=== PATIENT | female | born 1990 | race Hispanic/Latino ===

== ENCOUNTER 2021-05-21 11:57 | Emergency (ER) | payer SELFPAY ==
[~2021-05-21] VITALS: Ht 157.5 cm; Wt 98.4 kg
[2021-05-21] MEDS ORDERED: IBUPROFEN 600 MG TAB PO STA (12:13)
[2021-05-21 13:55] VITALS: BP 106/78
== END 2021-05-21 13:57 | disposition home or self-care (01) ==
LOC: ER 12:07
DX: M79.672 Pain in left foot (principal); M77.52 Other enthesopathy of left foot and ankle
CPT/HCPCS: 99283

== ENCOUNTER 2021-07-13 18:08 | Inpatient (IN) | payer SELFPAY ==
[~2021-07-13] VITALS: Ht 157.5 cm; Wt 98.4 kg
[2021-07-13] MEDS ORDERED: KETOROLAC TROMETHAMINE 30 MG/ML VIAL IM PRN (18:45)
[2021-07-13] MEDS ORDERED: SODIUM CHLORIDE 0.9% 1000ML 1,000 ML IV SCH (18:45)
[2021-07-13 19:02] LABS: BASOPHILS # (AUTO) 0.1 (0.0-0.1); BASOPHILS % 0.3 % (0.0-1.0); EOSINOPHILS # (AUTO) 0.2 (0.0-0.4); EOSINOPHILS % 0.7 % (0.0-6.0); HEMATOCRIT 40.5 % (34.2-44.1); HEMOGLOBIN 12.7 g/dL (12.0-16.0); LYMPHOCYTES % 13.6 % (18.0-39.1); MEAN CORPUSCULAR HEMOGLOBIN 26.8 pg (28-32); MEAN CORPUSCULAR HGB CONC 31.4 g/dL (31-35); MEAN CORPUSCULAR VOLUME 85.6 fL (81-99); MONOCYTES # (AUTO) 0.7 (0.2-0.8); MONOCYTES % 3.3 % (4.4-11.3); NEUTROPHILS # (AUTO) 17.8 (2.1-6.9); NEUTROPHILS % 81.6 % (38.7-80.0); PLATELET COUNT 383 x10e3/uL (140-360); RED BLOOD COUNT 4.73 x10e6/uL (3.6-5.1); RED CELL DISTRIBUTION WIDTH 13.1 % (11.7-14.4)
[2021-07-13] MEDS ORDERED: PIPERACILLIN/TAZOBACTAM 3.375 GM in SODIUM CHLORIDE 0.9% 50ML 50 ML IV ONE (19:15)
[2021-07-13] MEDS ORDERED: PROMETHAZINE HCL (IM) 25 MG/ML VIAL IM PRN ×2 (19:30→22:15)
[2021-07-13] MEDS ORDERED: ONDANSETRON HCL INJ 2MG/ML 2ML 2 MG/ML VIAL IV STA (19:33)
[2021-07-13 20:11] LABS: AMPHETAMINES SCREEN,URINE NEGATIVE (NEGATIVE); BENZODIAZEPINES SCREEN,URINE NEGATIVE (NEGATIVE); CLARITY,URINE TURBID (CLEAR); COLOR,URINE YELLOW (YELLOW); KETONES,URINE 1+ (NEGATIVE); LEUKOCYTE ESTERASE ,URINE NEGATIVE (NEGATIVE); NITRITE,URINE NEGATIVE (NEGATIVE); PHENCYCLIDINE SCREEN,URINE NEGATIVE (NEGATIVE); PROTEIN,URINE DIPSTICK TRACE (NEGATIVE)
[2021-07-13 20:12] LABS: BACTERIA,URINE FEW /HPF; EPITHELIAL CELLS,URINE RARE /LPF; RBC,URINE 0-5 /HPF (0-5); WBC,URINE (MAN) 0-5 /HPF (0-5)
[2021-07-13 20:13] LABS: AMORPHOUS SEDIMENT,URINE MANY (FEW)
[2021-07-13] MEDS: Morphine 4mg Syringe 4 MG/ML INJ IV PRN ×2 (20:23→22:26)
[2021-07-13] MEDS: ONDANSETRON HCL INJ 2MG/ML 2ML 2 MG/ML VIAL IV PRN ×2 (20:24→22:26)
[2021-07-13 20:48] LABS: ALBUMIN 3.1 g/dL (3.5-5.0); ALBUMIN/GLOBULIN RATIO 0.8 (0.8-2.0); ANION GAP 11.5 mmol/L (8-16); CALCIUM 8.8 mg/dL (8.4-10.2); CREATININE, SERUM 0.74 mg/dL (0.57-1.11); POTASSIUM 3.5 mmol/L (3.5-5.1)
[2021-07-13] MEDS ORDERED: IOPAMIDOL 370 MG/ML 200 ML INFUS..BTL INJ ONE (21:05)
[2021-07-13] MEDS ORDERED: SODIUM CHLORIDE 0.9% 50ML 50 ML ONE (21:05)
[2021-07-13 22:00] VITALS: BP 122/79
[2021-07-13] MEDS ORDERED: ONDANSETRON HCL INJ 2MG/ML 2ML 2 MG/ML VIAL IV PRN (22:15)
[2021-07-13] MEDS ORDERED: ACETAMINOPHEN 325 MG TAB PO PRN (22:15)
[2021-07-13] MEDS: CEFTRIAXONE 2 GM in SODIUM CHLORIDE 0.9% 100 ML IV SCH (22:26)
[2021-07-13] MEDS: SODIUM CHLORIDE 0.9% 1000ML 1,000 ML IV SCH (22:26)
[2021-07-13] MEDS ORDERED: SODIUM CHLORIDE 0.9% 1000ML 1,000 ML ONE (22:32)
[2021-07-14] VITALS (9 sets, daily range): BP systolic 98–123; BP diastolic 59–79
[2021-07-14 00:47] LABS: CREATINE KINASE MB 0.5 ng/mL (0-5.0)
[2021-07-14] MEDS ORDERED: HYDROCODONE/APAP 5MG-325MG TAB PO PRN (01:45)
[2021-07-14] MEDS ORDERED: ONDANSETRON HCL INJ 2MG/ML 2ML 2 MG/ML VIAL IV PRN (01:45)
[2021-07-14] MEDS ORDERED: HYDRALAZINE HCL 20 MG/ML VIAL IV PRN (01:45)
[2021-07-14] MEDS ORDERED: DOCUSATE SODIUM 100 MG CAP PO PRN (01:45)
[2021-07-14] MEDS ORDERED: ALBUTEROL/IPRATROPIUM 3 ML NEB NEB PRN (01:45)
[2021-07-14] MEDS ORDERED: DEXTROSE 50% SYRINGE 50 ML IV PRN (01:45)
[2021-07-14] MEDS ORDERED: CHLORASEPTIC SPRAY 177 ML BTL MM PRN (01:45)
[2021-07-14] MEDS ORDERED: ACETAMINOPHEN 325 MG TAB PO PRN (01:45)
[2021-07-14] MEDS ORDERED: POTASSIUM CHLORIDE 20 MEQ TAB CR PO PRN (01:45)
[2021-07-14] MEDS ORDERED: DIPHENHYDRAMINE HCL 25 MG CAP PO PRN (01:45)
[2021-07-14] MEDS: TRAMADOL HCL 50 MG TAB PO PRN ×2 (01:59→03:38)
[2021-07-14] MEDS ORDERED: NEURONTIN300 MG PO (06:24)
[2021-07-14] MEDS ORDERED: HYDROCODON-ACE1 EAC9 PO (06:24)
[2021-07-14] MEDS ORDERED: CYMBALTA20 MG PO (06:24)
[2021-07-14] MEDS ORDERED: AMBIEN5 MG PO (06:24)
[2021-07-14 06:43] LABS: BASOPHILS % 0.2 % (0.0-1.0); EOSINOPHILS # (AUTO) 0.2 (0.0-0.4); EOSINOPHILS % 1.2 % (0.0-6.0); HEMOGLOBIN 9.9 g/dL (12.0-16.0); LYMPHOCYTES # (AUTO) 3.1 (1.0-3.2); LYMPHOCYTES % 16.1 % (18.0-39.1); MEAN CORPUSCULAR HEMOGLOBIN 26.8 pg (28-32); MEAN CORPUSCULAR HGB CONC 30.9 g/dL (31-35); MEAN CORPUSCULAR VOLUME 86.5 fL (81-99); MONOCYTES # (AUTO) 0.8 (0.2-0.8); MONOCYTES % 4.4 % (4.4-11.3); NEUTROPHILS # (AUTO) 14.9 (2.1-6.9); NEUTROPHILS % 77.7 % (38.7-80.0); PLATELET COUNT 319 x10e3/uL (140-360); RED CELL DISTRIBUTION WIDTH 13.2 % (11.7-14.4)
[2021-07-14 06:54] LABS: CHOL/HDL RATIO 4.8 (3.0-3.6)
[2021-07-14 06:56] LABS: ALBUMIN 2.9 g/dL (3.5-5.0); ALBUMIN/GLOBULIN RATIO 0.8 (0.8-2.0); ANION GAP 10.9 mmol/L (8-16); CALCIUM 8.5 mg/dL (8.4-10.2); CREATININE, SERUM 0.68 mg/dL (0.57-1.11); POTASSIUM 3.9 mmol/L (3.5-5.1)
[2021-07-14 07:03] LABS: CREATINE KINASE MB 0.5 ng/mL (0-5.0)
[2021-07-14 07:16] LABS: THYROID STIMULATING HORMONE 3.249 uIU/mL (0.350-4.940)
[2021-07-14] MEDS: ACETAMINOPHEN 325 MG TAB PO PRN ×2 (08:45→15:30)
[2021-07-14] MEDS: SODIUM CHLORIDE 0.9% 1000ML 1,000 ML IV SCH ×2 (12:34→19:50)
[2021-07-14 15:25] LABS: CREATINE KINASE MB 0.6 ng/mL (0-5.0)
[2021-07-14] MEDS ORDERED: ENOXAPARIN SOD INJ 40 MG/0.4 ML SYR SC SCH (17:00)
[2021-07-14] MEDS: CEFTRIAXONE 2 GM in SODIUM CHLORIDE 0.9% 100 ML IV SCH (20:13)
[2021-07-14] MEDS: METOCLOPRAMIDE HCL 10 MG/2ML VIAL IV SCH (20:13)
[2021-07-14] MEDS ORDERED: METOCLOPRAMIDE HCL 10 MG/2ML VIAL IV SCH ×2 (22:00)
[2021-07-15 04:00] VITALS: BP 120/77
[2021-07-15] MEDS: METOCLOPRAMIDE HCL 10 MG/2ML VIAL IV SCH ×2 (05:53→11:58)
[2021-07-15 06:24] LABS: BASOPHILS % 0.2 % (0.0-1.0); EOSINOPHILS # (AUTO) 0.1 (0.0-0.4); EOSINOPHILS % 0.9 % (0.0-6.0); HEMATOCRIT 34.2 % (34.2-44.1); HEMOGLOBIN 10.7 g/dL (12.0-16.0); LYMPHOCYTES # (AUTO) 1.9 (1.0-3.2); LYMPHOCYTES % 12.6 % (18.0-39.1); MEAN CORPUSCULAR HEMOGLOBIN 26.6 pg (28-32); MEAN CORPUSCULAR HGB CONC 31.3 g/dL (31-35); MEAN CORPUSCULAR VOLUME 84.9 fL (81-99); MONOCYTES # (AUTO) 0.7 (0.2-0.8); MONOCYTES % 4.4 % (4.4-11.3); NEUTROPHILS # (AUTO) 12.2 (2.1-6.9); NEUTROPHILS % 81.3 % (38.7-80.0); PLATELET COUNT 337 x10e3/uL (140-360); RED BLOOD COUNT 4.03 x10e6/uL (3.6-5.1); RED CELL DISTRIBUTION WIDTH 13.1 % (11.7-14.4)
[2021-07-15 06:42] LABS: ANION GAP 11.8 mmol/L (8-16); CALCIUM 8.5 mg/dL (8.4-10.2); CREATININE, SERUM 0.63 mg/dL (0.57-1.11); POTASSIUM 3.8 mmol/L (3.5-5.1)
[2021-07-15 08:38] VITALS: BP 114/51
[2021-07-15 09:00] VITALS: BP 114/51
[2021-07-15] MEDS ORDERED: DULOXETINE HCL 20 MG DELAYED RELEASE PO SCH (09:00)
[2021-07-15] MEDS: SODIUM CHLORIDE 0.9% 1000ML 1,000 ML IV SCH (10:02)
[2021-07-15 12:15] VITALS: BP 118/69
== END 2021-07-15 13:50 | disposition left against medical advice (07) | DRG 177 ==
LOC: ER 18:36 → ERHOLD 22:05 → IMCU 23:08 → OBSVTOIN 07-15 11:23 → IMCU 07-15 13:22
PROVIDERS: ADMIT Internal Medicine; ATTEND Internal Medicine
PROC: 8E0ZXY6 Isolation (ICD-10-PCS; principal; 2021-07-14)
DX: J69.0 Pneumonitis due to inhalation of food and vomit (principal); U07.1 COVID-19; J12.82 Pneumonia due to coronavirus disease 2019; A05.9 Bacterial foodborne intoxication, unspecified; E66.01 Morbid (severe) obesity due to excess calories; Z68.39 Body mass index [BMI] 39.0-39.9, adult; K27.9 Peptic ulcer, site unspecified, unspecified as acute or chronic, without hemorrhage or perforation; F32.A Depression, unspecified; K29.70 Gastritis, unspecified, without bleeding
CPT/HCPCS: 36415; 74177; 80048; 80053; 80061; 80307; 81001; 81025; 82550; 82553; 83036; 83605; 83690; 84443; 84484; 85025; 87040; 94799; 96361; 99284; G0378; J0456; J0696; J1650; J2270; J2405; J2543; J2550; J2765; J7030; J7050; Q9967; U0002

== ENCOUNTER 2022-05-17 16:12 | Emergency (ER) | payer MEDICARE, SELFPAY ==
[~2022-05-17] VITALS: Ht 157.5 cm; Wt 98.4 kg
[~2022-05-17 16:12] MED LIST: AMBIEN5 MG PO; CYMBALTA20 MG PO; HYDROCODON-ACE1 EAC9 PO; NEURONTIN300 MG PO
[2022-05-17] MEDS ORDERED: SODIUM CHLORIDE 0.9% 1000ML 1,000 ML IV STA (17:02)
[2022-05-17] MEDS ORDERED: ONDANSETRON HCL INJ 2MG/ML 2ML 2 MG/ML VIAL IV STA (17:02)
[2022-05-17] MEDS ORDERED: FAMOTIDINE 20 MG/2 ML VIAL IV STA (17:02)
[2022-05-17] MEDS ORDERED: Morphine 4mg INJECTION 4 MG/ML INJ IV ONE (17:15)
[2022-05-17 17:17] LABS: BASOPHILS # (AUTO) 0.1 (0.0-0.1); BASOPHILS % 0.2 % (0.0-1.0); EOSINOPHILS % 0.1 % (0.0-6.0); HEMATOCRIT 39.7 % (34.2-44.1); HEMOGLOBIN 12.7 g/dL (12.0-16.0); LYMPHOCYTES # (AUTO) 2.1 (1.0-3.2); MEAN CORPUSCULAR HEMOGLOBIN 27.3 pg (28-32); MEAN CORPUSCULAR VOLUME 85.4 fL (81-99); MONOCYTES # (AUTO) 0.7 (0.2-0.8); NEUTROPHILS # (AUTO) 20.2 (2.1-6.9); NEUTROPHILS % 87.1 % (38.7-80.0); PLATELET COUNT 451 x10e3/uL (140-360); RED BLOOD COUNT 4.65 x10e6/uL (3.6-5.1); RED CELL DISTRIBUTION WIDTH 12.3 % (11.7-14.4)
[2022-05-17 17:37] LABS: ALBUMIN 3.6 g/dL (3.5-5.0); ALBUMIN/GLOBULIN RATIO 0.8 (0.8-2.0); ANION GAP 16.6 mmol/L (8-16); CALCIUM 9.9 mg/dL (8.4-10.2); CREATININE, SERUM 0.72 mg/dL (0.57-1.11); POTASSIUM 3.6 mmol/L (3.5-5.1)
[2022-05-17 17:38] LABS: LIPASE 7 U/L (8-78)
[2022-05-17 18:23] LABS: AMPHETAMINES SCREEN,URINE NEGATIVE (NEGATIVE); BENZODIAZEPINES SCREEN,URINE NEGATIVE (NEGATIVE); CLARITY,URINE CLEAR (CLEAR); COLOR,URINE YELLOW (YELLOW); KETONES,URINE 2+ (NEGATIVE); LEUKOCYTE ESTERASE ,URINE NEGATIVE (NEGATIVE); NITRITE,URINE NEGATIVE (NEGATIVE); PHENCYCLIDINE SCREEN,URINE NEGATIVE (NEGATIVE); PROTEIN,URINE DIPSTICK NEGATIVE (NEGATIVE); URINE UROBILINOGEN 0.2 mg/dL (0.2 - 1)
[2022-05-17 18:31] LABS: BACTERIA,URINE MODERATE /HPF; EPITHELIAL CELLS,URINE FEW /LPF; MUCUS,URINE FEW (RARE)
[2022-05-17] MEDS ORDERED: IOPAMIDOL 370 MG/ML 100 ML INFUS..BTL INJ ONE (18:53)
[2022-05-17] MEDS ORDERED: PEPCID20 MG PO (20:23)
[2022-05-17 20:45] VITALS: BP 122/84
== END 2022-05-17 20:39 | disposition home or self-care (01) ==
LOC: ER 17:00
DX: R10.13 Epigastric pain (principal); M79.605 Pain in left leg; R11.2 Nausea with vomiting, unspecified; D72.829 Elevated white blood cell count, unspecified
CPT/HCPCS: 36415; 74177; 80053; 80307; 81001; 83690; 84702; 85025; 99284; J2270; J2405; J7030; Q9967

== ENCOUNTER 2022-11-27 17:04 | Emergency (ER) | payer MEDICARE ==
[~2022-11-27] VITALS: Ht 162.6 cm; Wt 92.1 kg
[~2022-11-27 17:04] MED LIST changes: +PEPCID20 MG PO
[2022-11-27 18:37] LABS: BASOPHILS # (AUTO) 0.1 (0.0-0.1); BASOPHILS % 0.3 % (0.0-1.0); EOSINOPHILS % 0.1 % (0.0-6.0); HEMATOCRIT 39.6 % (34.2-44.1); HEMOGLOBIN 12.7 g/dL (12.0-16.0); LYMPHOCYTES # (AUTO) 1.8 (1.0-3.2); LYMPHOCYTES % 8.9 % (18.0-39.1); MEAN CORPUSCULAR HEMOGLOBIN 26.3 pg (28-32); MEAN CORPUSCULAR HGB CONC 32.1 g/dL (31-35); MEAN CORPUSCULAR VOLUME 82.2 fL (81-99); MONOCYTES # (AUTO) 0.6 (0.2-0.8); MONOCYTES % 2.8 % (4.4-11.3); NEUTROPHILS % 87.3 % (38.7-80.0); PLATELET COUNT 371 x10e3/uL (140-360); RED BLOOD COUNT 4.82 x10e6/uL (3.6-5.1); RED CELL DISTRIBUTION WIDTH 13.2 % (11.7-14.4)
[2022-11-27] MEDS ORDERED: KETOROLAC TROMETHAMINE 30 MG/ML VIAL IV STA (18:38)
[2022-11-27] MEDS ORDERED: FAMOTIDINE 20 MG/2 ML VIAL IV STA (18:38)
[2022-11-27] MEDS ORDERED: ONDANSETRON HCL INJ 2MG/ML 2ML 2 MG/ML VIAL IV STA (18:38)
[2022-11-27 18:42] LABS: CLARITY,URINE SL CLOUDY (CLEAR); COLOR,URINE AMBER (YELLOW); KETONES,URINE 2+ (NEGATIVE); LEUKOCYTE ESTERASE ,URINE NEGATIVE (NEGATIVE); NITRITE,URINE NEGATIVE (NEGATIVE); PROTEIN,URINE DIPSTICK NEGATIVE (NEGATIVE); URINE UROBILINOGEN 0.2 mg/dL (0.2 - 1)
[2022-11-27 18:43] LABS: AMPHETAMINES SCREEN,URINE NEGATIVE (NEGATIVE); BENZODIAZEPINES SCREEN,URINE NEGATIVE (NEGATIVE); PHENCYCLIDINE SCREEN,URINE NEGATIVE (NEGATIVE)
[2022-11-27 18:52] LABS: BACTERIA,URINE FEW /HPF; EPITHELIAL CELLS,URINE FEW /LPF; WBC,URINE (MAN) 0-5 /HPF (0-5)
[2022-11-27 18:56] LABS: ALBUMIN 3.9 g/dL (3.5-5.0); ANION GAP 15.5 mmol/L (8-16); CALCIUM 9.6 mg/dL (8.4-10.2); CREATININE, SERUM 0.72 mg/dL (0.57-1.11); POTASSIUM 3.5 mmol/L (3.5-5.1)
[2022-11-27] MEDS ORDERED: IOPAMIDOL 370 MG/ML 100 ML INFUS..BTL INJ ONE (19:07)
[2022-11-27] MEDS ORDERED: Morphine 4mg INJECTION 4 MG/ML INJ IV STA (19:38)
[2022-11-27] MEDS ORDERED: SODIUM CHLORIDE 0.9% 1000ML 1,000 ML IV STA ×2 (20:33→20:36)
[2022-11-27] MEDS ORDERED: AUGMENTIN 500-1 EACH PO (23:53)
[2022-11-27] MEDS ORDERED: ACETAMINOPHEN-1 EAC4 PO (23:53)
[2022-11-27] MEDS ORDERED: ONDANSETRON ODT4 MG PO (23:53)
[2022-11-28] MEDS ORDERED: ACETAMINOPHEN-1 EAC4 PO (00:03)
[2022-11-28 00:11] VITALS: BP 133/85; O2SAT 100
== END 2022-11-28 00:16 | disposition home or self-care (01) ==
LOC: ER 17:23
DX: R10.33 Periumbilical pain (principal); E87.20 Acidosis, unspecified; D72.829 Elevated white blood cell count, unspecified
CPT/HCPCS: 36415; 74177; 80053; 80307; 81001; 81025; 83605; 85025; 87040; 99284; J1885; J2270; J2405; J2543; J7030; Q9967

== ENCOUNTER 2024-08-05 05:31 | Emergency (ER) | payer MEDICARE ==
[~2024-08-05] VITALS: Ht 162.6 cm; Wt 92.5 kg
[~2024-08-05 05:31] MED LIST changes: +ACETAMINOPHEN-1 EAC4 PO; +AUGMENTIN 500-1 EACH PO; +ONDANSETRON ODT4 MG PO
[2024-08-05 05:36] VITALS: PULSE 88; RESP 17; TEMP 98.7
[2024-08-05 05:58] LABS: BASOPHILS % 0.3 % (0.0-1.0); EOSINOPHILS # (AUTO) 0.1 (0.0-0.4); EOSINOPHILS % 1.1 % (0.0-6.0); HEMATOCRIT 39.3 % (34.2-44.1); HEMOGLOBIN 12.6 g/dL (12.0-16.0); LYMPHOCYTES # (AUTO) 2.4 (1.0-3.2); LYMPHOCYTES % 20.1 % (18.0-39.1); MEAN CORPUSCULAR HEMOGLOBIN 27.3 pg (28-32); MEAN CORPUSCULAR HGB CONC 32.1 g/dL (31-35); MEAN CORPUSCULAR VOLUME 85.2 fL (81-99); MONOCYTES # (AUTO) 0.6 (0.2-0.8); MONOCYTES % 5.1 % (4.4-11.3); NEUTROPHILS # (AUTO) 8.8 (2.1-6.9); NEUTROPHILS % 73.2 % (38.7-80.0); PLATELET COUNT 265 x10e3/uL (140-360); RED BLOOD COUNT 4.61 x10e6/uL (3.6-5.1); RED CELL DISTRIBUTION WIDTH 13.3 % (11.7-14.4); WHITE BLOOD COUNT 12.05 x10e3/uL (4.8-10.8)
[2024-08-05] MEDS: MAGNESIUM/ALUMINUM/SIMETHICONE 30 ML UDC PO STA (05:58)
[2024-08-05] MEDS: LIDOCAINE VISC 2% SOLN 15 ML UDC PO STA (05:59)
[2024-08-05] MEDS: BELLADONNA ALK/PHENOBARBITAL 5 ML UDC PO ONE (05:59)
[2024-08-05 06:05] LABS: AMPHETAMINES SCREEN,URINE NEGATIVE (NEGATIVE); BENZODIAZEPINES SCREEN,URINE NEGATIVE (NEGATIVE); CANNABINOIDS SCREEN,URINE NEGATIVE (NEGATIVE); COCAINE SCREEN,URINE NEGATIVE (NEGATIVE); METHADONE SCREEN, URINE NEGATIVE (NEGATIVE); OPIATES SCREEN,URINE NEGATIVE (NEGATIVE); PHENCYCLIDINE SCREEN,URINE NEGATIVE (NEGATIVE); PREGNANCY TEST, URINE NEGATIVE (NEGATIVE)
[2024-08-05 06:25] LABS: ALANINE AMINOTRANSFERASE 17 IU/L (0-55); ALBUMIN 3.6 g/dL (3.5-5.0); ALBUMIN/GLOBULIN RATIO 0.9 (0.8-2.0); ALKALINE PHOSPHATASE 50 IU/L (40-150); BILIRUBIN,TOTAL 0.4 mg/dL (0.2-1.2); BLOOD UREA NITROGEN 14 mg/dL (7-26); BUN/CREATININE RATIO 20 (6-25); CALCIUM 9.1 mg/dL (8.4-10.2); CARBON DIOXIDE 21 mmol/L (22-29); CHLORIDE 106 mmol/L (98-107); CREATINE KINASE 16 IU/L (29-168); CREATININE, SERUM 0.71 mg/dL (0.57-1.11); EST GLOMERULAR FILTRATION RATE 113 ML/MIN (>=60); GLUCOSE 105 mg/dL (74-118); SODIUM 136 mmol/L (136-145); TOTAL PROTEIN 7.4 g/dL (6.5-8.1)
[2024-08-05 06:37] LABS: TROPONIN I < 0.05 ng/mL (0.0-0.40)
[2024-08-05 06:44] VITALS: BP 116/74; PULSE 71; RESP 20; TEMP 98.3; O2SAT 100
== END 2024-08-05 06:54 | disposition home or self-care (01) ==
LOC: ER 05:41
DX: R06.02 Shortness of breath (principal); K29.70 Gastritis, unspecified, without bleeding; R11.0 Nausea
CPT/HCPCS: 36415; 71045; 80053; 80307; 81025; 82550; 83690; 83880; 84484; 85025; 93005; 99284